=== PATIENT | male | born 1950 | race Caucasian/White ===

== ENCOUNTER 2016-11-08 05:56 | Day surgery (SDC) | payer OTHER ==
[2016-11-02 09:22] LABS: HEMATOCRIT 42.1 % (40.0-51.0)
[2016-11-02 09:38] LABS: BUN (BLOOD UREA NITROGEN) 17 MG/DL (6-23); CALCIUM, SERUM 9.1 MG/DL (8.5-10.4); CHLORIDE, SERUM 103 MMOL/L (96-112); CO2 (CARBON DIOXIDE) 34 MMOL/L (24-34); CREATININE 0.88 MG/DL (0.70-1.30); GFR AFRICAN AMERICAN 103 ML/MIN (>=60); GFR NON AFRICAN AMERICAN 89 ML/MIN (>=60); GLUCOSE, SERUM 104 MG/DL (60-99); POTASSIUM, SERUM 4.1 MMOL/L (3.5-5.3); SODIUM, SERUM 135 MMOL/L (135-148)
[2016-11-02 10:08] LABS: ASCORBIC ACID (UR NOT ORDER) NEG (NEG); BILIRUBIN, URINE NEGATIVE (NEG); KETONE, URINE NEGATIVE (NEG); LEUKOCYTE ESTERASE(NOT OR NEG (NEG); WBC (NOT ORDERED) (RFLEX) < 1 (0-5)
--- NOTE | ~2016-11-08 | OP ---
Record Of Operation [facility] [address] [place]. [address] NAME: JONAS STANLEY : 48 STATUS : [facility]#: [id number] AGE: 66 ADM/REG DATE : 11/08/16 MR#: [id number] REPORT SERV DATE: 11/09/16 DICTATED BY: VALENTINO LONG DATE: 11/08/16 REPORT STATUS : Draft TRANSCRIBED BY: MURIEL DATE: 11/08/16 DATE OF PROCEDURE: 11/08/2016 TYPE OF OPERATION: 1. Cystourethroscopy. 2. Bilateral ureteroscopy with laser lithotripsy. 3. Placement of left ureteral stent. PREOPERATIVE DIAGNOSIS: Bilateral renal stones. POSTOPERATIVE DIAGNOSIS: Bilateral renal stones. INDICATIONS: Mr. Stanley is a 66-year-old male with bilateral renal stones. He has pain. He is here for ureteroscopy and treatment. ANESTHESIA: General. COMPLICATIONS: None. IMPLANTS: Left 6 x 26 ureteral stent with tether. SPECIMENS: None. NARRATIVE: The patient was brought to the operating room, identified by his wristband. General anesthesia was induced and Levaquin was given for preoperative antibiotics. He was placed in a dorsal lithotomy position and prepped and draped in sterile fashion. A cystoscope was placed into his urethra and into his bladder. The urethra was normal. The prostatic urethra was nonobstructing. The bladder had no tumors or other lesions. The left ureteral orifice was identified and cannulated with a Sensor wire. Retrograde pyelogram was shot due to his contrast allergy. A dual-lumen catheter was placed over the wire into his distal ureter for dilation. A flexible ureteroscope was placed over the wire to the renal pelvis. The kidney was inspected systematically. One 6-mm stone was encountered. It was fragmented in multiple submillimeter pieces using 100 watt 200 micron laser fiber. None of the pieces were big enough to grasp with a grasper and they all passed spontaneously. There was no other stone material in the kidney whatsoever. The wire was placed back up to the kidney. A 6 x 26 ureteral stent was placed in standard fashion. Tether was left. The proximal coil was in the renal pelvis, the distal coil was in the bladder. Attention was turned to the right side. A wire was placed up to the level of the renal pelvis under fluoroscopic guidance. The flexible ureteroscope went over the wire easily. No dilation was needed. The scope was advanced up to the kidney. Two stones were encountered. A 1-mm stone was encountered in the lower pole calyx. It was fragmented into several small pieces. Next, a 6-mm stone was encountered in the midpole calyx. It was fragmented in very small pieces using a 100 watt laser and a 200 micron laser fiber. None of the stones were big enough to be grasped, they all passed spontaneously. This ureteroscopy was very nontraumatic and he did not need a stent. The scope was removed. The Record Of Operation [facility] [address] [place]. [address] NAME: JONAS STANLEY : 48 STATUS : [facility]#: [id number] AGE: 66 ADM/REG DATE : 11/08/16 MR#: [id number] REPORT SERV DATE: 11/09/16 DICTATED BY: VALENTINO LONG DATE: 11/08/16 REPORT STATUS : Draft TRANSCRIBED BY: MURIEL DATE: 11/08/16 bladder was drained. The left ureteral stent tether was taped to his penis with a Tegaderm dressing. The patient was awoken from anesthesia and transferred to recovery room in stable condition. There were no complications. I will see him on for stent removal. MINOR/MURIEL Valentino Long MD / [id number] CC: MD Christiano Kraus M.D.
[~2016-11-08 05:56] MED LIST: ASAB PO; COREG25 PO; FERROUS SULF324 MG PO; FLECAINIDE50 MG PO; FLOMAX4 PO; GLUCPH PO; KLOR-CON M1010 MEQ PO; L40 PO; PRIN5 PO; PROAIR HFA INH; VITAMIN B 12 PO; X25 PO; XARELTO20 MG PO; ZANTAC300 MG PO
== END 2016-11-08 13:29 | disposition home or self-care (01) ==
LOC: SDC 05:56
PROVIDERS: Urology
PROC: 0T788DZ Dilation of Bilateral Ureters with Intraluminal Device, Via Natural or Artificial Opening Endoscopic (ICD-10-PCS; 2016-11-08)
PROC: 0TF48ZZ Fragmentation in Left Kidney Pelvis, Via Natural or Artificial Opening Endoscopic (ICD-10-PCS; principal; 2016-11-08 07:45)
PROC: 0TF38ZZ Fragmentation in Right Kidney Pelvis, Via Natural or Artificial Opening Endoscopic (ICD-10-PCS; 2016-11-08 07:45)
DX: N20.0 Calculus of kidney (principal); E66.9 Obesity, unspecified; E78.5 Hyperlipidemia, unspecified; F32.9 Major depressive disorder, single episode, unspecified; F41.9 Anxiety disorder, unspecified; I25.10 Atherosclerotic heart disease of native coronary artery without angina pectoris; I10 Essential (primary) hypertension; I48.91 Unspecified atrial fibrillation; J44.9 Chronic obstructive pulmonary disease, unspecified; J42 Unspecified chronic bronchitis; K21.9 Gastro-esophageal reflux disease without esophagitis; R73.03 Prediabetes; G51.0 Bell's palsy; I25.2 Old myocardial infarction; F17.210 Nicotine dependence, cigarettes, uncomplicated; J30.2 Other seasonal allergic rhinitis; E66.01 Morbid (severe) obesity due to excess calories; Z68.33 Body mass index [BMI] 33.0-33.9, adult; Z79.899 Other long term (current) drug therapy; Z79.84 Long term (current) use of oral hypoglycemic drugs; Z79.82 Long term (current) use of aspirin; Z91.041 Radiographic dye allergy status; Z98.890 Other specified postprocedural states; Z97.2 Presence of dental prosthetic device (complete) (partial)
CPT/HCPCS: 74420; 80048; 81001; 82962; 85014; 85018; 93005; A9270-GY; C1758; C2617; J2270; J2405; J2710; J3010; Q9967